=== PATIENT | female | born 1935 | race Caucasian/White ===

== ENCOUNTER → 2016-08-17 | Outpatient (CLI) | payer OTHER ==
[~2016-08-17] MED LIST: ACETAMINOPHEN650 M3 PO; ACID CONTROL150 MG PO; ACTONEL PO; ALLEGRA PO; ALLOPURINOL300 MG PO; AMARYL PO; ASPIRINEC PO; BESIVANCE5 ML OP; CALCIUM + D 6001 TA1 PO; CAPTOPRIL PO; COLACE PO; COUMADIN5 MG PO; CRESTOR PO; DARVOCET-N 1001 TAB PO; DAYPRO600 M1 PO; FOSAMAX70 MG PO; GABAPENTIN300 MG PO; GLUCOPHAGE XR500 MG PO; LASIX PO; LEVOTHYROXINE75 MC1 PO; LOPID600 MG PO; LOPRESSOR PO; LYRICA PO; MOBIC PO; MONTELUKAST SOD10 MG PO; OMEGA 3 FISH OI1 CAP PO; PARICALCITOL1 MCG PO; PLAVIX PO; POSTURE600 MG PO; POTASSIUM CHLO10 ME1 PO; POTASSIUM CHLO10 MEQ PO; PRAVASTATIN SOD40 MG PO; QUINAPRIL HCL20 M1 PO; QUINAPRIL HCL20 MG PO; REFRESH OPTIVE1 EACH OP; SINGULAIR PO; SYSTANE GEL EYE10 ML OP; VITAMIN B 12 INJ; VITAMIN D350000 UNIT PO; ZANTAC PO; ZETIA PO; ZYLOPRIM PO
[2016-08-17 13:03] LABS: CALCIUM SERUM 11.5 mg/dL (8.4-10.2); GLOM FILT RATE Estimated 53.6 mL/min (>60); POTASSIUM 4.1 mmol/L (3.5-5.1)
[2016-08-19 19:57] LABS: CALCIUM (PTHINTACT) 11.9 mg/dL (8.6-10.4)
== END | disposition home or self-care (01) ==
LOC: CLAB 11:32
PROVIDERS: Internal Medicine
DX: E10.9 Type 1 diabetes mellitus without complications (principal)
CPT/HCPCS: 36415; 80048; 80061; 82310; 83970

== ENCOUNTER → 2016-10-22 | Outpatient (CLI) | payer OTHER ==
[2016-10-22 15:24] LABS: BUN/CREATININE RATIO 17.5; CALCIUM SERUM 11.7 mg/dL (8.4-10.2); CREATININE SERUM 0.8 mg/dL (0.6-1.4); GLOM FILT RATE Estimated 70.2 mL/min (>60); POTASSIUM 4.5 mmol/L (3.5-5.1)
== END | disposition home or self-care (01) ==
LOC: CLAB 13:27
PROVIDERS: Internal Medicine
DX: E03.9 Hypothyroidism, unspecified (principal); E78.5 Hyperlipidemia, unspecified; I10 Essential (primary) hypertension
CPT/HCPCS: 36415; 80048; 80061; 82306; 84443

== ENCOUNTER → 2016-11-03 | Outpatient (CLI) | payer OTHER ==
--- NOTE | ~2016-11-03 | NM65 ---
[facility] A Service of [facility] RADIOLOGY TEXT RESULTS PATIENT: DORI IQBAL LOCATION: [facility] : 36 UNIT #: [id number] AGE: [address]: Adalberto Porras MD SEX: F ORDER DR: [id number] [address] [address] [id number] O MR#: [id number] Acc #: [id number] NAME: DORI IQBAL : 1935 SEX: F STUDY DATE/TIME: 11/03/2016 8:56 UNIT: [facility] ROOM: STUDY DESCRIPTION: AL Parathyroid Imaging Attending Physician: Adalberto Porras M.D. Referring Physician: Adalberto Porras M.D. Ordering Physician: Adalberto Porras M.D. Primary Care Physician: Manoj Cisneros M.D. MEDICAL IMAGING REPORT This report is preliminary unless electronic signature is present EXAM Nuclear medicine parathyroid scintigraphy. Date: 11/03/2016 HISTORY A 80-year-old female with hypercalcemia. COMPARISON None. FINDINGS Following intravenous administration of 22.9 mCi technetium 99m Sestamibi, anterior, right oblique and left oblique views were obtained of the neck and upper chest in the 15 minute and delayed phases. Normal radiopharmaceutical uptake is demonstrated within the thyroid glands, bilateral submandibular and parotid glands on immediate phase imaging. There is partial, but incomplete, washout from the thyroid and salivary glands on delayed-phase imaging; however, there is no focal intense abnormal radiopharmaceutical uptake to localize a site of abnormal or ectopic parathyroid tissue on this examination. IMPRESSION Negative nuclear medicine parathyroid scintigraphy. Dictated by... Alejandra Kruger M.D. THIS IS AN ELECTRONICALLY VERIFIED REPORT Alejandra Kruger M.D. at 11/05/2016 6:13 AM [facility] A Service [facility] RADIOLOGY TEXT RESULTS PATIENT: DORI IQBAL LOCATION: [facility] : 36 UNIT #: [id number] AGE: [address]: Adalberto Porras MD SEX: F ORDER DR: JAMES/richmond TD: 11/04/2016 12:35 JOB #: [id number] MEDICAL IMAGING REPORT Page 1 of 1 COPY
== END | disposition home or self-care (01) ==
LOC: CNUC 11-02 08:30
DX: E83.52 Hypercalcemia (principal); E21.3 Hyperparathyroidism, unspecified
CPT/HCPCS: 78070; A9500

== ENCOUNTER 2016-11-05 11:22 | Inpatient (IN) | payer OTHER ==
--- NOTE | ~2016-11-05 | CR206 ---
[facility] A Service of [facility] RADIOLOGY TEXT RESULTS PATIENT: DORI IQBAL LOCATION: [facility] : 36 UNIT #: [id number] AGE: [address]: Scott Atkins MD SEX: F ORDER DR: [id number] [facility] [address] [place], [place] [address] [id number] E MR#: [id number] Acc #: [id number] NAME: DORI IQBAL : 1935 SEX: F STUDY DATE/TIME: 11/05/2016 1259 UNIT: [facility] ROOM: STUDY DESCRIPTION: CR Pelvis 1 or 2 Views Attending Physician: Scott Atkins M.D. Ordering Physician: Scott Atkins M.D. Primary Care Physician: Manoj Cisneros M.D. MEDICAL IMAGING REPORT This report is preliminary unless electronic signature is present EXAM Pelvis one-view 11/05/2016 1259 hours COMPARISON 05/06/2016 CLINICAL HISTORY Weakness. Patient awoke today with weakness and inability to walk. FINDINGS Single view of the pelvis is performed and the hips are held in rotation which limits evaluation of the femoral necks. Bones are osteopenic. There is no pelvic fracture. There is facet degenerative change at the lumbosacral junction and sclerosis at the pubic symphysis similar to prior study. IMPRESSION Osteopenia with lower lumbar degenerative change and stable sclerotic degenerative change at the pubic symphysis. No definite fracture seen. The hips are held in internal rotation on both sides which limits evaluation of the femoral neck. Dictated by... Elsa Castillo M.D. THIS IS AN ELECTRONICALLY VERIFIED REPORT Elsa Castillo M.D. at 11/05/2016 4:01 PM Hannah TD: 11/05/2016 15:45 JOB #: [id number] MEDICAL IMAGING REPORT [facility] A Service of [facility] RADIOLOGY TEXT RESULTS PATIENT: DORI IQBAL [id number] : 36 UNIT #: [id number] AGE: [address]: Scott Atkins MD SEX: F ORDER DR: Page 1 of 1 COPY
--- NOTE | ~2016-11-05 | CO ---
Unit #: [id number] #: [id number] Patient: DORI IQBAL [id number] [address] [place], [place] [address] [id number] I MR#: [id number] NAME: DORI IQBAL. ROOM: 315 Age: 80 Sex: F Admission Date: 11/05/2016 : 1935 Attending Physician: Irma De Paz M.D. Primary Care Physician: Manoj Cisneros M.D. Consultation Date: 11/08/2016 CONSULTATION REPORT REASON FOR CONSULTATION Followup. DISCUSSION Ms. Claros is a 80-year-old white female, seen in room 315, bed 1 on 11/08/2016 at [facility]. The patient was sitting comfortably in chair. Answered to question by laughing, has significant problem with memory, confusion, but pleasant and cooperative. No agitation. The patient reports slept good and the patient denied any thoughts of harming self or others or any agitation. Vital signs; temperature 98.6, pulse 84, respirations 16, blood pressure 125/81, and oxygen saturation 98%. No side effects from medication. REVIEW OF SYSTEMS Complete review of systems is unremarkable. MENTAL STATUS EXAMINATION Vital signs; please see above. General appearance; the patient is moderately obese, dressed casually, lying comfortably in bed. Attention span and concentration, fair. Speech, slow. Oriented in self and place. Mood and affect, labile. Thought process, circumstantial. Thought content, guarded, paranoid, problem with memory. Denied any thoughts of harming self or others. Recent and remote memory, impaired. Language, fair. Fund of knowledge, fair to slightly impaired. Insight and judgment, fair to impaired. DIAGNOSES Psychiatric: Major neurocognitive disorder secondary to Alzheimer disease with behavioral disturbances, F02.81. ASSESSMENT/PLAN 1. Supportive psychotherapy and psychoeducation provided to the patient, but the patient unable to comprehend much. 2. Advised to continue with current treatment and medication. If needed consider further adjustment of medication. Please feel free to call if any questions, telephone #[phone]. Dictated by... John Newell M.D. MICHELLE/susan Unit #: [id number] #: [id number] Patient: TRISH IQBALCE Jenifer TD: 11/09/2016 16:10 JOB #: [id number] CONSULTATION REPORT Page 1 of 1 X John Newell MD CONSULTATION REPORT
--- NOTE | ~2016-11-05 | CT52 ---
[facility] A Service of [facility] RADIOLOGY TEXT RESULTS PATIENT: DORI IQBAL LOCATION: [facility] : 36 UNIT #: [id number] AGE: [address]: JESSE CHAMBERS MD SEX: F ORDER DR: [id number] [address] [facility]. [place], [place] [address] [id number] E MR#: [id number] Acc #: [id number] NAME: DORI IQBAL : 1935 SEX: F STUDY DATE/TIME: 11/05/2016 13:30 UNIT: [facility] ROOM: STUDY DESCRIPTION: CT Cervical Spine Wo Cont Attending Physician: Scott Moscoso M.D. Ordering Physician: Scott Moscoso M.D. Primary Care Physician: Manoj Cisneros M.D. MEDICAL IMAGING REPORT This report is preliminary unless electronic signature is present EXAM CT cervical spine 11/05/2016 HISTORY 80-year-old female in the ED after injury. Multiple falls today. Weakness and confusion/mental status changes. Neck tenderness. TECHNIQUE Thin-section axial CT images were obtained from the skull base through the mid portion of T2. Sagittal and coronal images were reconstructed. This CT exam was performed with one or more of the following radiation dose reduction techniques: automatic exposure control, adjustment of mA and/or kV according to patient size, and iterative reconstruction. FINDINGS No fracture or other acute osseous abnormality is demonstrated. Moderate degenerative disc space narrowing and vertebral osteophyte formation at C5-6 and C6-7. Vgog-li-seucnpos degenerative facet arthropathy is seen bilaterally throughout the cervical spine, greatest on the left at C2-3. Cervical vertebral alignment is normal. Generalized demineralization suggests potential osteoporosis. IMPRESSION 1. No fracture or other acute osseous abnormality. 2. Multilevel degenerative changes as noted above. Dictated by... Rich Diaz M.D. THIS IS AN ELECTRONICALLY VERIFIED REPORT Rich Diaz M.D. at 11/05/2016 10:23 PM [facility] A Service of [facility] RADIOLOGY TEXT RESULTS PATIENT: DORI IQBAL LOCATION: [facility] 315-01 : 36 UNIT #: [id number] AGE: [address]: JESSE CHAMBERS MD SEX: F ORDER DR: Karrie TD: 11/05/2016 17:10 JOB #: [id number] MEDICAL IMAGING REPORT Page 1 of 1 COPY
--- NOTE | ~2016-11-05 | CR181 ---
[facility] A Service of [facility] RADIOLOGY TEXT RESULTS PATIENT: DORI IQBAL LOCATION: [facility] : 36 UNIT #: [id number] AGE: [address]: Scott Atkins MD SEX: F ORDER DR: [id number] [facility] [address] [place], [place] [address] [id number] E MR#: [id number] Acc #: [id number] NAME: DORI IQABL : 1935 SEX: F STUDY DATE/TIME: 11/05/2016 1259 UNIT: [facility] ROOM: STUDY DESCRIPTION: CR Lumbar Spine 2 or 3 Views Attending Physician: Scott Atkins M.D. Ordering Physician: Scott Atkins M.D. Primary Care Physician: Manoj Cisneros M.D. MEDICAL IMAGING REPORT This report is preliminary unless electronic signature is present EXAM Lumbar spine series 11/05/2016 1259 hours CLINICAL HISTORY 80-year-old woman who awoke this morning with weakness and unable to walk today. COMPARISON CT lumbar spine 05/17/2016 FINDINGS AP and lateral views of lumbar spine and a cone lateral view of the lumbosacral junction were performed. The bones are osteopenic. There is compression deformity of the superior endplate of L2 similar to CT scan 05/17/2016. There is disc height loss and vacuum phenomena at L1-2, 2-3, 3-4 and 4-5. There is a few millimeters of anterolisthesis of 4 on 5 likely chronic. There is facet arthropathy at the lower lumbar levels. There is compression deformity of the inferior endplate of T12 with increased sclerosis at this level. The sclerotic change is new and the vertebral body height loss is increased from April 2016. There is mild wedging of T10 and T11 which may be chronic. IMPRESSION Compression deformity of L2 with a few millimeters of retrolisthesis of L2 on 3 and anterolisthesis of L4 on [address] scan 05/17/2016. There is further vertebral body height loss at T12 with increased sclerosis in the lower half of T12 which is progressive from 05/17/2016. There is questionable vertebral body height loss at T10 and T11 which may be stable to minimally increased. No significant malalignment is seen. Dictated by... Elsa Castillo M.D. [facility] A Service of [facility] RADIOLOGY TEXT RESULTS PATIENT: DORI IQBAL [id number] 36 UNIT #: [id number] AGE: [address]: Scott Atkins MD SEX: F ORDER DR: THIS IS AN ELECTRONICALLY VERIFIED REPORT Elsa Castillo M.D. at 11/05/2016 4:01 PM Hannah TD: 11/05/2016 15:41 JOB #: [id number] MEDICAL IMAGING REPORT Page 1 of 1 COPY
--- NOTE | ~2016-11-05 | CT122 ---
[facility] A Service of [facility] RADIOLOGY TEXT RESULTS PATIENT: DORI IQBAL LOCATION: [facility] 315-01 : 36 UNIT #: [id number] AGE: [address]: Irma De Paz MD SEX: F ORDER DR: [id number] [facility] [address] [facility]. [place], [place] [address] [id number] I MR#: [id number] Acc #: [id number] NAME: DORI IQBAL : 1935 SEX: F STUDY DATE/TIME: 11/06/2016 14:22 [facility] STUDY DESCRIPTION: CT Thoracic Spine Wo Cont Attending Physician: Irma De Paz M.D. Ordering Physician: Irma De Paz M.D. Primary Care Physician: Manoj Cisneros M.D. MEDICAL IMAGING REPORT This report is preliminary unless electronic signature is present EXAM CT of the thoracic spine without contrast, dated 11/06/16. COMPARISON Plain films thoracic spine dated 11/05/16. HISTORY Multiple falls and weakness. Patient had last fall on 11/05/16. Compression fracture at T11-12 on last plain film. FINDINGS CT of the thoracic spine was obtained without contrast in the axial plane followed by sagittal and coronal reformats. This CT exam was performed with one or more of the following radiation dose reduction techniques: automatic exposure control, adjustment of mA and/or kV according to patient size, and iterative reconstruction. There is inferior endplate sclerotic changes along with compression deformity of T12, with mild retropulsion of the posterior aspect of T12 into the canal causing borderline size to mild canal stenosis. There is mild anterior chronic wedge compression deformity of T11 with about 25-35% maximal vertebral body height loss. Acute fracture lines are not seen. No significant paravertebral swelling or hematoma is seen. Disc osteophyte complex, facet hypertrophic changes and costovertebral changes are noted at multiple levels. facet hypertrophic changes are noted of varying degrees throughout the spine. It is Severe bilaterally at T3-4 and T4-5, moderate in bilateral T5-6 to T8-9, severe in bilateral T9-10, gucb-xi-qkwfvyiv in bilateral T10-11 and T11-12 facet joints. There is disc osteophyte complex at multiple levels which along with the facet changes contribute to mild mass effect on the adjacent thecal sac. There is a orcf-hq-sajtgjur canal stenosis at T9-10 and T10-11 levels. Mild retropulsion of posterior/inferior endplate of T12 is noted to cause mild mass effect on the adjacent thecal sac and borderline size to mild canal STS. [facility] A Service of [facility] RADIOLOGY TEXT RESULTS PATIENT: DORI IQBAL LOCATION: [facility] 315-01 : 36 UNIT #: [id number] AGE: [address]: Irma De Paz MD SEX: F ORDER DR: stenosis. In bilateral mhc-ul-txyjm thoracic neural foramina, there appear to be bony narrowing. It is relatively worse in left T10-11, left T7-8, left T9-10 more than right, left T10-11 neural foramina. There is a small hiatal hernia. Pre and paravertebral soft tissue demonstrate mild atelectatic changes in the lungs bibasilarly along the dependent aspect of bilateral lower lobes. Calcified right posterior upper lobe lung nodule is noted suggestive of old granulomatous disease. IMPRESSION 1. There is an age indeterminate compression fracture of T12 inferior endplate with mild retropulsion of the posterior aspect of T12 into the canal causing borderline size to mild canal stenosis. No obvious fracture line is noted to suggest obvious new acute displaced fracture. MRI can be considered to evaluate for acuity and bone edema. 2. Anterior chronic-appearing wedge compression deformity of T11 is noted without obvious fracture fragment which is displaced. There is about 25 to 35% maximal anterior vertebral body height loss. 3. Disc osteophyte complex, facet hypertrophic changes with varying degrees of canal stenosis and neural foraminal narrowing are noted in the thoracic spine as described above. Dictated by... Armando Grant M.D. THIS IS AN ELECTRONICALLY VERIFIED REPORT Armando Grant M.D. at 11/11/2016 3:58 PM CPR/jt TD: 11/06/2016 16:20 JOB #: [id number] MEDICAL IMAGING REPORT Page 1 of 1 COPY
--- NOTE | ~2016-11-05 | CO ---
Unit #: [id number] #: [id number] Patient: DORI IQBAL [id number] [address] [place], [place] [address] [id number] I MR#: [id number] NAME: DORI IQBAL. ROOM: 315 Age: 80 Sex: F Admission Date: 11/05/2016 : 1935 Attending Physician: Irma De Paz M.D. Primary Care Physician: Manoj Cisneros M.D. Consultation Date: 11/09/2016 CONSULTATION REPORT REASON FOR CONSULTATION Followup. DISCUSSION Ms. Claros is a 80-year-old white female, seen in room 315, bed 1 on 11/09/2016. The patient is tolerating medication fairly well. The patient was pleasant and cooperative. Vital signs stable; temperature 97.9, pulse 102, respirations 18, blood pressure 146/71, and oxygen saturation 96%. The patient was confused and having problem with memory, diagnosed with dementia. No agitation or aggression. The patient does not have any sitter. The patient's family reported there is an increased confusion over the last 6 months. The patient lives alone and has fallen several times in home. 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 REVIEW OF SYSTEMS Complete review of system is unremarkable. MENTAL STATUS EXAMINATION Vital signs; temperature 97.9, pulse 102, respirations 18, blood pressure 146/71, and oxygen saturation 96%. General appearance; the patient dressed in hospital attire. Attention span and concentration, poor. Speech, slow. Oriented in self. Mood and affect, labile. Thought process, circumstantial. Thought content, guarded, but denied any thoughts of harming self or others. Recent and remote memory, poor. Language, fair. Fund of knowledge, poor. Insight and judgment, fair to slightly impaired. DIAGNOSIS Psychiatric: Major neurocognitive disorder secondary to Alzheimer disease with behavioral disturbances, F02.81. ASSESSMENT/PLAN Supportive psychotherapy and psychoeducation provided to the patient, but the patient unable to comprehend much. Recommending at this time to continue with current medication combination. If needed, consider further adjustment of medication. Please feel free to call if any questions, telephone #[phone]. Dictated by... John Newell M.D. SZC/susan Unit #: [id number] #: [id number] Patient: DORI IQBAL TD: 11/09/2016 23:06 JOB #: [id number] CONSULTATION REPORT Page 1 of 1 X John Newell MD CONSULTATION REPORT
--- NOTE | ~2016-11-05 | EKG ---
PATIENT: DORI IQBAL UNIT #: [id number] Ventricular Rate: 72 BPM Atrial Rate: 72 BPM P-R Interval: 136 ms QRS Duration: 92 ms Q-T Interval: 386 ms QTC Calculation(Bezet): 422 ms P Walker: 19 degrees Calculated R Walker: -30 degrees Calculated T Walker: 7 degrees Diagnosis Line: Normal sinus rhythm Diagnosis Line: Left axis deviation Diagnosis Line: Moderate voltage criteria for LVH, may be normal Diagnosis Line: variant Diagnosis Line: Nonspecific ST and T wave abnormality Diagnosis Line: Abnormal ECG Diagnosis Line: When compared with ECG of 16-MAY-2016 17:46, Diagnosis Line: Premature ventricular complexes are no longer Diagnosis Line: Present Diagnosis Line: Nonspecific T wave abnormality, worse in Lateral Diagnosis Line: leads Diagnosis Line: Confirmed by KALYANI OH, DANIELITO ([id number]) on Diagnosis Line: 11/05/2016 4:26:43 PM INTERPRETING MD: MAGUE
--- NOTE | ~2016-11-05 | DS ---
Unit #: [id number] #: [id number] Patient: DORI IQBAL [id number] [address] [place], [place] [address] [id number] MR#: [id number] NAME: DORI IQBAL. ROOM: [facility] Age: 80 Sex: F Admission Date: 11/05/2016 : 1935 Discharge Date: 11/09/2016 Attending Physician: Irma De Paz M.D. Primary Care Physician: Manoj Cisneros M.D. DISCHARGE SUMMARY REASON FOR ADMISSION Weakness/multiple falls. 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 Initially, in the emergency room x-ray of the spine showed progression of a T12 compression fracture, as well as a calcium level of 14.2; thus, patient was admitted for the same. In regards to her compression fracture, initial chest x-rays revealed the above; therefore, we placed a consultation to spine services. Dr. Arias and associates were not available to see and evaluate the patient; however, in review, they stated that patient was not an intraoperative candidate, but rehab was recommended. Apparently, in the past she has had numerous fractures of compression nature which has been evaluated as an outpatient by Spine. But secondary to her associated comorbid conditions, she was felt to be a nonoperative candidate. Physical and occupational therapy services saw and evaluated the patient in regards to her chronic deconditioning. Both services have recommended rehab at time of discharge. Initially, urinalysis was positive; thus, she was placed initially on IV antibiotics. But ultimately, her final urine culture did not show any acute bacterial growth. She did undergo a CT head noncontrast which did not show any acute process. In regards to her elevated calcium, consultation was placed to Dr. Mckeon and associates of nephrology services. Appropriate treatment was administered while patient was here. Today, on her BMP, her calcium currently stands at 10.1. Her magnesium is slightly decreased but has been appropriately repleted. Patient appears clinically stable for transition to rehab for ongoing care. FINAL DISCHARGE DIAGNOSES 1. Weakness. 2. Chronic immobility syndrome. 3. Frequent falls likely secondary to autonomic dysfunction. Unit #: [id number] #: [id number] Patient: DORI IQBAL 4. Hypercalcemia. 5. Hyperparathyroidism. 6. Hypothyroidism. 7. Diabetes. 8. Hypertension. 9. Hyperlipidemia. 10. Hypertriglyceridemia. 11. Coronary artery disease. 12. Osteoarthritis. 13. Numerous compression fractures nonoperative within spine. FINAL DISCHARGE MEDICATIONS 1. Magnesium oxide 800 mg p.o. daily. 2. Coumadin 5 mg p.o. Tuesday, Tuesday, Tuesday, , Tuesday, and Tuesday. 3. Risperdal 0.25 mg p.o. b.i.d. 4. Norvasc 5 mg p.o. daily. 5. Lipitor 10 mg p.o. at bedtime. 6. Synthroid 75 mcg p.o. daily. Medications will be reviewed by renal services prior to discharge. DISCHARGE CONDITION Stable. DISCHARGE DISPOSITION Rehab. Dictated by... Lazara Putnam/trice TD: 11/09/2016 13:59 JOB #: [id number] DISCHARGE SUMMARY Page 1 of 1 X Irma De Paz MD X DISCHARGE SUMMARY
--- NOTE | ~2016-11-05 | CO ---
Unit #: [id number] #: [id number] Patient: DORI IQBAL [id number] [address] [place], [place] [address] [id number] I MR#: [id number] NAME: DORI IQBAL. ROOM: 315 Age: 80 Sex: F Admission Date: 11/05/2016 : 1935 Attending Physician: Irma De Paz M.D. Primary Care Physician: Manoj Cisneros M.D. Requesting Physician: Raisa Wise M.D. CONSULTATION REPORT REASON FOR CONSULTATION Severe hypercalcemia with muscle weakness and a vertebral fracture of T12. HISTORY OF PRESENT ILLNESS This patient is a very pleasant 80-year-old white female, with history of hypertension, hyperlipidemia, peripheral neuropathy, history of gout, history of hypothyroidism, on Synthroid therapy. The patient was admitted due to fall. She was on a high dose calcium supplement with vitamin D3 and Synthroid replacement, was admitted with hypercalcemia and calcium of 14.2. The patient also had a T12 fracture. She denied any alkaline intake, denied any diarrhea, dysuria, frequency of urination, denied any weight loss, does not have anemia and/or serum creatinine is normal to 0.9. Urinalysis was not done. The urinalysis is not done to see whether the patient has any degree of proteinuria. She does have trace proteins on the urine, some urinary tract infection with some evidence of urinary tract infection as well. In my assessment, the patient seems to have hypercalcemia, the question is whether the patient has underlying bone marrow disease with multiple myeloma or lichen disease, or she has some endocrinopathy with primary hyperparathyroidism, or excess intake of the Synthroid. At this point, I will rule out all the secondary causes, primary goal will be to start vitamin D, and bring the calcium down to normal level. I will start the patient on Zometa 4 mg IV. Continue IV fluids and will use low diuretic 40 mg Lasix IV q12 with replacement of potassium, will rule out other secondary causes for hypercalcemia. PAST MEDICAL HISTORY This patient past medical history is per history of present illness. FAMILY HISTORY Really noncontributory. MEDICATIONS Include: 1. Vitamin D3 which she was taking 50,000 units twice weekly which is quite a hefty dose 2. Neurontin 300 mg three times daily 3. Allopurinol 300 mg daily 4. Quinapril 20 mg daily 5. Levothyroxine 75 mcg daily 6. Potassium chloride 10 mEq p.o. daily 7. Coumadin 5 mg p.o. daily Unit #: [id number] #: [id number] Patient: DORI IQBAL PHYSICAL EXAMINATION GENERAL: She is a pleasant lady in no acute distress. VITAL SIGNS: Temperature is 98.5, pulse 74, blood pressure 143/75. HEENT: Mild pallor. No oral exudate. NECK: Supple. There is no jugular venous distention, no bruit, no thyromegaly. No cervical lymphadenopathy. CHEST: Clear to auscultation bilaterally. CARDIOVASCULAR EXAM: Regular rate and rhythm. No rub, murmur, or gallop. ABDOMEN: Soft, nontender, positive bowel sounds. EXTREMITIES: No peripheral edema. DIAGNOSTIC STUDIES LABORATORY DATA: Sodium 138, potassium 3.3, chloride 107, bicarb 27, BUN 15, creatinine 0.9. The patient had a urinalysis with evidence of urinary tract infection with trace leukocytes, trace protein, 5-10 RBCs, some WBCs. Her calcium level is 14.2 coming down to 12.3. Albumin is 3.4. ASSESSMENT 1. Hypercalcemia, most likely secondary to excessive intake of vitamin D which will be discontinued. I will check vitamin D 24-hydroxy vitamin D level, also will check thyroid hormone, TSH, and free T4, as well as check the urine electrolytes to see the etiology of hypokalemia. I will also start the patient treating with Zometa 4 mg IV, for 15 minutes and Lasix 40 IV q.12 along with saline infusion. Thank you very much for sharing care of this patient with me, my assessment is this patient probably has hypercalcemia related to vitamin D intake but will rule out all other secondary causes which are likely with a vertebral fracture, could be from osteoporosis. Dictated by... Lazara Almonte/minnie TD: 11/07/2016 09:23 JOB #: [id number] CONSULTATION REPORT Page 1 of 1 X Jamie Mckeon MD CONSULTATION REPORT
--- NOTE | ~2016-11-05 | CO ---
Unit #: [id number] #: [id number] Patient: DORI IQBAL [id number] [facility]. [place], [place] [address] [id number] I MR#: [id number] NAME: DORI IQBAL. ROOM: 315 Age: 80 Sex: F Admission Date: 11/05/2016 : 1935 Attending Physician: Irma De Paz M.D. Primary Care Physician: Manoj Cisneros M.D. Consultation Date: 11/07/2016 CONSULTATION REPORT REASON FOR CONSULTATION Confusion, agitation, dementia. HISTORY OF PRESENT ILLNESS Ms. Hadyee Morales is a 80-year-old white female, seen in room 315 on 11/07/2016 at [facility]. The patient was pleasant and cooperative, was sitting in a chair. The patient made good eye contact, but confused, able to give some answers. The patient was oriented in self, able to answer question about her daughter. Vital signs; temperature 97.9, pulse 109, respiratory rate 18, and blood pressure 154/95. The patient is a poor historian. The patient was last admitted in 04/2016. The patient was admitted with weakness and multiple falls. The patient lives alone, has support from family. PAST PSYCHIATRIC HISTORY Unremarkable for any history of diagnosis of depression, anxiety, or dementia. MEDICAL HISTORY Remarkable for hypertension, diabetes, hyperparathyroidism, hypothyroidism, gout, hyperlipidemia, hypertriglyceridemia, TIA, coronary artery disease, DJD. ALLERGIES To latex, codeine, sulfa, erythromycin, tetanus vaccine. MEDICATIONS The patient is on vitamin D3, Neurontin, allopurinol, levothyroxine, potassium chloride, and Coumadin. FAMILY HISTORY AND SOCIAL HISTORY The patient lives alone, but reports that she has a good support system from her daughter. No history of abuse. No history of substance abuse. REVIEW OF SYSTEMS Complete review of systems is unremarkable. MENTAL STATUS EXAMINATION Vital signs; temperature 97.9, pulse 109, respiratory rate 18, and blood pressure 154/95. General appearance; the patient dressed in hospital attire, sitting comfortably in chair, pleasant and cooperative but confused, poor historian. Attention span and concentration, poor. Speech, slow. Orientation in self. Mood and affect, labile. Thought process, circumstantial. Thought content, denied any thoughts of harming Unit #: [id number] #: [id number] Patient: DORI IQBAL self or others, but somewhat guarded and paranoia noted. Recent and remote memory, fair to poor. Language, fair. Fund of knowledge, fair to poor. Insight and judgment, fair to slightly impaired. DIAGNOSES Psychiatric: Major neurocognitive disorder secondary to Alzheimer disease with behavioral disturbances, F02.81. Secondary diagnosis: Deferred. Medical diagnosis: Please refer to H and P. Stressors: Psychosocial stressor. ASSESSMENT/PLAN 1. Supportive psychotherapy and psychoeducation provided to the patient. 2. Educated about benefits and side effects of medication and course and prognosis of illness. 3. Advised to continue with current medication and add Risperdal 0.25 mg b.i.d. We will closely monitor for side effect and make further adjustment of medication if needed. Please feel free to call if any questions, telephone #[phone]. Dictated by... Lazara Pritchard/susan TD: 11/07/2016 22:36 JOB #: [id number] CONSULTATION REPORT Page 1 of 1 X John Newell MD X CONSULTATION REPORT
--- NOTE | ~2016-11-05 | CT71 ---
[facility] A Service [facility] RADIOLOGY TEXT RESULTS PATIENT: DORI IQBAL LOCATION: [facility] 315-01 : 36 UNIT #: [id number] AGE: [address]: Irma De Paz MD SEX: F ORDER DR: [id number] [facility] [address] [facility]. [place], [place] [address] [id number] E MR#: [id number] Acc #: [id number] NAME: DORI IQBAL : 1935 SEX: F STUDY DATE/TIME: 11/05/2016 11:43 UNIT: MICHAEL ROOM: STUDY DESCRIPTION: CT Head Wo Contrast Attending Physician: Scott Moscoso M.D. Ordering Physician: Scott Moscoso M.D. Primary Care Physician: Manoj Cisneros M.D. MEDICAL IMAGING REPORT This report is preliminary unless electronic signature is present EXAM CT brain without contrast media 11/05/2016 COMPARISON STUDIES Comparison examination 05/16/2016 HISTORY Multiple falls today, weakness, tenderness, neck tenderness and confusion. TECHNIQUE Axial imaging of the brain was performed without contrast media and compared directly to the patient's previous exam. This CT exam was performed with one or more of the following radiation dose reduction techniques: automatic exposure control, adjustment of mA and/or kV according to patient size, and iterative reconstruction. FINDINGS There is generalized ventricular enlargement. There is decreased attenuation in the periventricular white matter and both hemispheres. Small chronic lacunar infarctions are seen in the left thalamus and right basal ganglia. No mass lesions, mass effect, acute hemorrhage or edema. No fluid collections are seen. There are calcifications in both basal ganglia, calcifications are seen in the vertebral arteries and carotid siphons. Bone windows are reviewed. There are no fractures seen. Visualized sinuses appeared unremarkable. CONCLUSION 1. Atrophy with chronic deep white matter ischemic changes. 2. Basal ganglia calcifications. 3. Tiny lacunar infarction in the right basal ganglia and left thalamus. 4. No acute intracranial findings. [facility] A Service [facility] RADIOLOGY TEXT RESULTS PATIENT: DORI IQBAL LOCATION: [facility] 315-01 : 36 UNIT #: [id number] AGE: [address]: Irma De Paz MD SEX: F ORDER DR: Dictated by... Fito Mane M.D. THIS IS AN ELECTRONICALLY VERIFIED REPORT Fito Mane M.D. at 11/08/2016 5:11 PM LAURA/geremias TD: 11/05/2016 16:19 JOB #: [id number] MEDICAL IMAGING REPORT Page 1 of 1 COPY
--- NOTE | ~2016-11-05 | CR72 ---
[facility] A Service of [facility] RADIOLOGY TEXT RESULTS PATIENT: DORI IQBAL LOCATION: [facility] 315-01 : 36 UNIT #: [id number] AGE: [address]: Irma De Paz MD SEX: F ORDER DR: [id number] [facility] [address] [facility]. [place], [place] [address] [id number] E MR#: [id number] Acc #: [id number] NAME: DROI IQBAL : 1935 SEX: F STUDY DATE/TIME: 11/05/2016 12:54 UNIT: [facility] ROOM: STUDY DESCRIPTION: CR Chest Single View Portable Attending Physician: Scott Moscoso M.D. Ordering Physician: Scott Moscoso M.D. Primary Care Physician: Manoj Cisneros M.D. MEDICAL IMAGING REPORT This report is preliminary unless electronic signature is present EXAM AP portable chest 11/05/2016. HISTORY Weakness, unable to walk today. Got up this morning and could not walk. History of coronary artery disease with prior myocardial infarction. COMPARISON AP portable chest 05/16/2016. FINDINGS No acute airspace disease. Heart size at the upper limits of normal, but stable. Benign calcified granuloma in the left mid lung. No pleural effusion, pneumothorax or acute osseous abnormality. IMPRESSION Stable borderline cardiac enlargement. No acute chest findings. Dictated by... Alejandra Kruger M.D. THIS IS AN ELECTRONICALLY VERIFIED REPORT Alejandra Kruger M.D. at 11/08/2016 1:22 PM JAMES/nirmala TD: 11/05/2016 16:28 JOB #: [id number] MEDICAL IMAGING REPORT Page 1 of 1 COPY
--- NOTE | ~2016-11-05 | CR243 ---
[facility] A Service of [facility] RADIOLOGY TEXT RESULTS PATIENT: DORI IQBAL LOCATION: [place] [address] : 36 UNIT #: [id number] AGE: [address]: Irma De Paz MD SEX: F ORDER DR: [id number] [id number] [facility]. [place], [place] [address] [id number] E MR#: [id number] Acc #: [id number] NAME: DORI IQBAL : 1935 SEX: F STUDY DATE/TIME: 11/05/2016 13:00 UNIT: [facility] ROOM: STUDY DESCRIPTION: CR Thoracic Spine 3 Views Attending Physician: Scott Moscoso M.D. Ordering Physician: Scott Moscoso M.D. Primary Care Physician: Manoj Cisneros M.D. MEDICAL IMAGING REPORT This report is preliminary unless electronic signature is present EXAM Thoracic spine series 10/26/2016 1300 hours COMPARISON Chest film 11/01/2015. CLINICAL HISTORY Patient woke today with weakness and inability to walk today. COMPARISON Chest film 11/01/2015 lateral view. FINDINGS AP and lateral views of the thoracic spine and cone lateral view of the thoracic lumbar junction were performed. Bones are osteopenic. There is a compression deformity of T12 greater than T11 with osteophyte formation. There is increased sclerotic change in the lower half of the T12 vertebral body as compared to 11/01/2015 which could indicate progression of this known compression fracture. There is stable compression deformity at L2. No new fractures are seen. IMPRESSION There is further vertebral body height loss at T12 with increasing sclerosis lower half of the vertebral body since lateral view chest 11/01/2015 which could indicate progression of compression fracture at T12. There is slight kyphosis centered at T11-12 slightly progressive. There is osteopenia but no upper thoracic fracture is seen. Significant compression deformity of L2 is again demonstrated and felt unchanged. Dictated by... Elsa Castillo M.D. [facility] A Service of [facility] RADIOLOGY TEXT RESULTS PATIENT: DORI IQBAL LOCATION: [facility] 315-01 : 36 UNIT #: [id number] AGE: [address]: Irma De Paz MD SEX: F ORDER DR: THIS IS AN ELECTRONICALLY VERIFIED REPORT Elsa Castillo M.D. at 11/08/2016 10:35 AM Andrew TD: 11/05/2016 16:04 JOB #: [id number] MEDICAL IMAGING REPORT Page 1 of 1 COPY
--- NOTE | ~2016-11-05 | HP ---
Unit #: [id number] #: [id number] Patient: DORI IQBAL [id number] [address] [place], [place] [address] [id number] E MR#: [id number] NAME: DORI IQBAL ROOM: Age: 80 Sex: F Admission Date: 11/05/2016 : 1935 Attending Physician: Scott Moscoso M.D. Primary Care Physician: Manoj Cisneros M.D. HISTORY AND PHYSICAL CHIEF COMPLAINT Weakness and multiple falls. HISTORY OF PRESENT ILLNESS The patient is a 80-year-old female with the history of TIAs and hypertension, hyperparathyroidism, coronary artery disease. She is admitted for the recurrent falls. The patient stated the patient has been having weakness in the legs associated with multiple falls. The patient last fell about this morning where she was trying to turn and she fell down while using the walker. The patient's workup shows that she had an x-ray of the spine that showed a progression of the T12 compression fracture and the calcium level is 14.2 and the patient is being admitted of the above reasons; denies any loss of consciousness, chest pain, nausea, vomiting, short of breath. PAST MEDICAL HISTORY Hypertension, diabetes, hyperparathyroidism on Zemplar, hypothyroidism, gout, hyperlipidemia and hypertriglyceridemia, TIAs, coronary artery disease, DJD. PAST SURGICAL HISTORY Cholecystectomy, foot surgery, bilateral carpal tunnel release, bilateral cataract extraction, I/D of the hand. ALLERGIES Latex, codeine, sulfa, mycins, erythromycin, tetanus vaccine. HOME MEDICATIONS Unavailable. FAMILY HISTORY CVA and coronary artery disease. SOCIAL HISTORY The patient lives alone. She is accompanied by family. She is a lifelong nonsmoker, does not drink alcohol. REVIEW OF SYMPTOMS Fourteen-point review of symptoms performed and only pertinent positive findings as described above, remaining are negative. PHYSICAL EXAMINATION GENERAL APPEARANCE: On examination the patient is lying on a bed not in Unit #: [id number] #: [id number] Patient: DORI IQBAL acute distress. VITAL SIGNS: Temperature 98, pulse 78, respiratory rate 17, blood pressure 137/82, sating 96% at room air. HEENT: Head atraumatic, normocephalic. Pupils equal, round and reacting to light and accommodation. Dry mucous membrane. NECK: Supple. No adenopathy. LUNGS: Clear to auscultation. HEART: Regular rate and rhythm. ABDOMEN: Soft, positive bowel sounds. EXTREMITIES: No cyanosis. No clubbing. NEUROLOGIC: Alert, awake, oriented. No gross focal motor deficit. DIAGNOSTIC STUDIES LABORATORY DATA: Glucose 110, WBC 11.9, hemoglobin 13.9, hematocrit 43.2, platelets 117, INR is 1.2, troponin less than 0.05. UA shows trace leukocyte esterase, 5 to 10 RBCs, sodium 139, potassium 3.9, chloride 102, bicarb 30, glucose 94, BUN 20, creatinine 1.2, calcium 14.2, AST 24, ALT 24, total bilirubin 2.3, total bilirubin 2.3, albumin 3.4. IMAGING: X-ray of the lumbar spine shows compression deformity of the L2 with a few millimeters of retrolisthesis of L2-3 and anterior listhesis of L4-[address] scan. There is further vertebral body height loss at T12 with increased sclerosis in the lower half of T12 which is progressive. There is questionable vertebral body height loss at T10 and T11 which may be stable to minimally increased. No significant malalignment is seen. X-ray of the pelvis shows osteopenia with lower lumbar degenerative changes and stable sclerotic degenerative change at the pubic symphysis. No definite fracture seen. The hips are held in internal rotation on both sides which limits evaluation of the femoral neck. ASSESSMENT 1. Weakness. 2. History of a thoracic 12 compression fracture. 3. Hypercalcemia. PLAN Plan to admit the patient to observation with telemetry. Patient to receive the IV fluids and will have the renal consult for hypercalcemia and continue with the OT/PT and check the PTH level and further recommendations will follow. Dictated by Lazara Floyd TD: 11/05/2016 17:43 JOB #: [id number] Unit #: [id number] #: [id number] Patient: DORI IQBAL HISTORY AND PHYSICAL Page 1 of 1 X JESSE CHAMBERS MD X HISTORY AND PHYSICAL
[~2016-11-05 11:22] MED LIST changes: -ALLOPURINOL300 MG PO; -GABAPENTIN300 MG PO; -LEVOTHYROXINE75 MC1 PO
[2016-11-05 14:18] LABS: BASOPHIL# 0.1 X10e3 (0-0.3); BASOPHIL% 0.5 % (0-2.5); EOSINOPHIL% 0.1 % (0.0-7.0); HEMATOCRIT 43.2 % (35.0-45.0); HEMOGLOBIN 13.9 gm/dL (12.0-16.0); LYMPHOCYTE# 1.8 X10e3 (1.0-3.5); LYMPHOCYTE% 14.7 % (17.0-45.0); MEAN CELL VOLUME 91.2 FL (83-96); MEAN CORPUSCULAR HEMOGLOBIN 29.4 PG (28-34); MEAN CORPUSCULAR HGB CONC 32.3 g/dL (30-36); MEAN PLATELET VOLUME 10.9 FL (6.5-11.5); MONOCYTE# 1.3 X10e3 (0-1.0); MONOCYTE% 11.3 % (3.0-12.0); NEUTROPHIL# 8.7 X10e3 (1.5-7.1); NEUTROPHIL% 73.4 % (40-75); PLATELET COUNT 117 X10e3 (140-420); RED BLOOD COUNT 4.74 X10e (3.90-5.30); RED CELL DISTRIBUTION WIDTH 15.6 % (11.0-15.5); WHITE BLOOD COUNT 11.9 X10e3 (4.0-10.5)
[2016-11-05 14:19] LABS: DIFF IND NO
[2016-11-05 14:35] LABS: INR 1.2; PROTHROMBIN TIME (PATIENT) 12.8 SECONDS (10.0-11.7)
[2016-11-05 14:38] LABS: URINE SOURCE CLEAN CATCH
[2016-11-05 14:44] LABS: URINE APPEARANCE CLEAR; URINE BLOOD TRACE (NEG); URINE COLOR DK YELLOW; URINE GLUCOSE NEG (NEG); URINE KETONE TRACE (NEG); URINE LEUKOCYTE ESTERASE TRACE (NEG); URINE NITRATE NEG (NEG); URINE PROTEIN TRACE (NEG)
[2016-11-05 14:47] LABS: POC - CKMB 3.6 ng/mL (0.0-7.9); POC - TROPONIN <0.05 ng/mL (<=0.05)
[2016-11-05 14:47] LABS: URINE BACTERIA AUWI NEG (NEGATIVE); URINE SQUAMOUS EPITHELIAL CELL OCC /[HPF]; UWBCS1 AUWI 0-2 (0-5)
[2016-11-05 14:53] LABS: CULTURE INDICATED? NO
[2016-11-05 14:54] LABS: U HYALINE CASTS AUWI 0-2 /[LPF]; URINE BILIRUBIN NEG (NEG)
[2016-11-05 14:57] LABS: ALBUMIN SERUM 3.4 g/dL (3.5-5.0); BILIRUBIN, DIRECT 0.4 mg/dL (0.0-0.2); BILIRUBIN,INDIRECT 1.9 mg/dL (0.0-0.9); BILIRUBIN,TOTAL 2.3 mg/dL (0.2-2.0); BUN/CREATININE RATIO 16.66; CREATININE SERUM 1.2 mg/dL (0.6-1.4); POTASSIUM 3.9 mmol/L (3.5-5.1)
[2016-11-05 15:01] LABS: CALCIUM SERUM 14.2 mg/dL (8.4-10.2)
[2016-11-05] MEDS ORDERED: VITAMIN D350000 UNIT PO (17:35)
[2016-11-05] MEDS ORDERED: GABAPENTIN300 MG PO (17:35)
[2016-11-05] MEDS ORDERED: QUINAPRIL HCL20 M1 PO (17:36)
[2016-11-05] MEDS ORDERED: ALLOPURINOL300 MG PO (17:36)
[2016-11-05] MEDS ORDERED: LEVOTHYROXINE75 MC1 PO (17:37)
[2016-11-05] MEDS ORDERED: POTASSIUM CHLO10 MEQ PO (17:37)
[2016-11-05] MEDS ORDERED: COUMADIN5 MG PO (17:38)
[2016-11-06 04:06] LABS: BASOPHIL# 0.1 X10e3 (0-0.3); BASOPHIL% 0.7 % (0-2.5); DIFF IND NO; EOSINOPHIL# 0.1 X10e3 (0-0.7); EOSINOPHIL% 0.8 % (0.0-7.0); HEMATOCRIT 39.8 % (35.0-45.0); HEMOGLOBIN 12.8 gm/dL (12.0-16.0); LYMPHOCYTE# 1.4 X10e3 (1.0-3.5); MEAN CORPUSCULAR HEMOGLOBIN 29.7 PG (28-34); MEAN CORPUSCULAR HGB CONC 32.2 g/dL (30-36); MONOCYTE# 0.9 X10e3 (0-1.0); MONOCYTE% 10.8 % (3.0-12.0); NEUTROPHIL# 5.6 X10e3 (1.5-7.1); NEUTROPHIL% 69.7 % (40-75); PLATELET COUNT 104 X10e3 (140-420); RED BLOOD COUNT 4.33 X10e (3.90-5.30); RED CELL DISTRIBUTION WIDTH 15.4 % (11.0-15.5)
[2016-11-06 04:36] LABS: BUN/CREATININE RATIO 16.66; CALCIUM SERUM 12.3 mg/dL (8.4-10.2); CREATININE SERUM 0.9 mg/dL (0.6-1.4); GLOM FILT RATE Estimated 60.9 mL/min (>60); POTASSIUM 3.3 mmol/L (3.5-5.1)
[2016-11-06] MEDS ORDERED: PRAVASTATIN SOD40 MG PO (11:09)
[2016-11-06 13:11] LABS: THYROID STIMULATING HORMONE 1.33 uIU/ml (0.34-5.60)
[2016-11-06 13:18] LABS: FREE THYROXIN (T4) 0.98 ng/dL (0.58-1.64)
[2016-11-06 21:56] LABS: CREATININE,RANDOM URINE 21 mg/dL; POTASSIUM,URINE RANDOM 16 mmol/L; SODIUM URINE RANDOM 117 mmol/L; TOTAL PROTEIN,RANDOM URINE <10 mg/dl (<10)
[2016-11-07 06:26] LABS: INR 1.1; PROTHROMBIN TIME (PATIENT) 12.1 SECONDS (10.0-11.7)
[2016-11-07 07:09] LABS: BUN/CREATININE RATIO 13.75; CALCIUM SERUM 12.1 mg/dL (8.4-10.2); CREATININE SERUM 0.8 mg/dL (0.6-1.4); GLOM FILT RATE Estimated 70.2 mL/min (>60); MAGNESIUM 1.1 mg/dL (1.6-3.0); POTASSIUM 3.5 mmol/L (3.5-5.1)
[2016-11-07 12:57] LABS: URINE APPEARANCE CLEAR; URINE BILIRUBIN NEG (NEG); URINE BLOOD 3+ (NEG); URINE COLOR YELLOW; URINE GLUCOSE NEG (NEG); URINE KETONE NEG (NEG); URINE LEUKOCYTE ESTERASE TRACE (NEG); URINE NITRATE NEG (NEG); URINE PROTEIN 1+ (NEG); URINE SPECIFIC GRAVITY 1.013 (1.003-1.035); URINE UROBILINOGEN 0.2 MG/DL (NEG)
[2016-11-07 13:04] LABS: URINE BACTERIA AUWI NEG (NEGATIVE); URINE SQUAMOUS EPITHELIAL CELL OCC /[HPF]
[2016-11-07 13:21] LABS: URBCS1 AUWI 25-50 /[HPF] (0-2)
[2016-11-08 09:16] LABS: HEMATOCRIT 43.9 % (35.0-45.0); MEAN CELL VOLUME 91.9 FL (83-96); MEAN CORPUSCULAR HEMOGLOBIN 29.4 PG (28-34); MEAN PLATELET VOLUME 11.7 FL (6.5-11.5); RED BLOOD COUNT 4.78 X10e (3.90-5.30); RED CELL DISTRIBUTION WIDTH 15.3 % (11.0-15.5); WHITE BLOOD COUNT 7.2 X10e3 (4.0-10.5)
[2016-11-08 09:30] LABS: BUN/CREATININE RATIO 11.25; CALCIUM SERUM 11.2 mg/dL (8.4-10.2); CREATININE SERUM 0.8 mg/dL (0.6-1.4); GLOM FILT RATE Estimated 70.2 mL/min (>60); MAGNESIUM 1.5 mg/dL (1.6-3.0); PHOSPHOROUS 1.5 mg/dL (2.5-4.6); POTASSIUM 3.3 mmol/L (3.5-5.1)
[2016-11-09 05:35] LABS: HEMATOCRIT 36.7 % (35.0-45.0); MEAN CELL VOLUME 90.5 FL (83-96); MEAN CORPUSCULAR HEMOGLOBIN 29.7 PG (28-34); MEAN CORPUSCULAR HGB CONC 32.8 g/dL (30-36); MEAN PLATELET VOLUME 11.4 FL (6.5-11.5); RED BLOOD COUNT 4.05 X10e (3.90-5.30); RED CELL DISTRIBUTION WIDTH 15.7 % (11.0-15.5); WHITE BLOOD COUNT 8.4 X10e3 (4.0-10.5)
[2016-11-09 05:48] LABS: INR 1.2; PROTHROMBIN TIME (PATIENT) 13.4 SECONDS (10.0-11.7)
[2016-11-09 06:34] LABS: BUN/CREATININE RATIO 14.28; CALCIUM SERUM 10.1 mg/dL (8.4-10.2); CREATININE SERUM 0.7 mg/dL (0.6-1.4); GLOM FILT RATE Estimated 82.4 mL/min (>60); MAGNESIUM 1.4 mg/dL (1.6-3.0); POTASSIUM 4.1 mmol/L (3.5-5.1)
[2016-11-10 03:53] LABS: SPE A1GLOB (PNL) 0.3 g/dL (0.2-0.3); SPE A2GLOB (PNL) 0.8 g/dL (0.5-0.9); SPE ALB (PNL) 2.8 g/dL (3.8-4.8); SPE BETA 1 GLOBULIN 0.4 g/dL (0.4-0.6); SPE BETA 2 GLOBULIN 0.3 g/dL (0.2-0.5); SPE GAMMA (PNL) 0.4 g/dL (0.8-1.7); SPETP (PNL) 4.9 g/dL (6.1-8.1)
[2016-11-10 06:21] LABS: CALCIUM (PTHINTACT) 12.8 mg/dL (8.6-10.4)
== END 2016-11-09 18:36 | DRG 641 ==
LOC: CED 11:22 → C3A PCU 16:00 → CEDOF 16:00 → C3A PCU 18:29 → CED 18:29 → CEDOF 18:29 → C3A PCU 18:34 → CEDOF 18:34 → C3A PCU 18:34
PROVIDERS: Emergency Medicine; Family Medicine; Internal Medicine
DX: E83.52 Hypercalcemia (principal); S22.089A Unspecified fracture of T11-T12 vertebra, initial encounter for closed fracture; N39.0 Urinary tract infection, site not specified; F05 Delirium due to known physiological condition; F02.81 Dementia in other diseases classified elsewhere, unspecified severity, with behavioral disturbance; E21.3 Hyperparathyroidism, unspecified; G30.9 Alzheimer's disease, unspecified; I10 Essential (primary) hypertension; Z91.81 History of falling; Z86.73 Personal history of transient ischemic attack (TIA), and cerebral infarction without residual deficits; E11.9 Type 2 diabetes mellitus without complications; I25.10 Atherosclerotic heart disease of native coronary artery without angina pectoris; M19.90 Unspecified osteoarthritis, unspecified site; Z98.42 Cataract extraction status, left eye; Z98.41 Cataract extraction status, right eye; Z90.49 Acquired absence of other specified parts of digestive tract; Z88.2 Allergy status to sulfonamides; Z88.7 Allergy status to serum and vaccine; Z91.040 Latex allergy status; M62.81 Muscle weakness (generalized); M62.3 Immobility syndrome (paraplegic); E03.9 Hypothyroidism, unspecified; E78.1 Pure hyperglyceridemia
CPT/HCPCS: 36415; 70450; 71010; 72072; 72100; 72125; 72128; 72170; 80048; 80076; 81003; 82306; 82310; 82436; 82553; 82570; 82947; 83735; 83883; 83970; 84100; 84133; 84156; 84165; 84300; 84439; 84443; 84484; 85025; 85027; 85610; 87086; 93005; 94760; 97110; 97116; 97162; 97166; 97530; 97535; 99285; G8978-GP; G8979-GP; G8987-GO; G8988-GO; J0630; J1630; J1940; J3475; J3489